=== PATIENT | male | born 1940 | race Caucasian/White ===

== ENCOUNTER 2021-08-25 08:56 | Inpatient (IN) | payer OTHER ==
[2021-08-25] VITALS (49 sets, daily range): BP systolic 75–111; BP diastolic 42–74
[~2021-08-25] VITALS: Ht 167.6 cm; Wt 63.3 kg
--- NOTE | ~2021-08-25 | EMS ---
[address] [address] EMS Patient Care Report Name: NIKOLAS ARANDA Room #: 238-P ADM IN M.R.#: [id number] Admission: 08/25/21 Attend Phys: Monico Jane MD Discharge: Date of : 40 Report #: [id number] THIS REPORT FOR: //name// Report Transmitted: 08/27/2021 07:53 EMS Care Summary [place], [place]/[facility] Incident [id number] @ 08/25/2021 08:18 Incident Location [address] [facility] 102 Patient ROSI CONNOR Male, 81 Years 1940 Patient Address [address] [facility] 102 [place] [phone] Patient History Amputee,Hypotension, Patient Medications Isosorbide, Bacitracin, Chief Complaint dizziness Disposition Transported No Lights/[place] Dispatch Reason Sick Person Transported To [facility] Narrative Upon arrival at [facility], we found the Pt laying supine in bed. Pt complained of dizziness since this morning. Nurse stated that she called because his BP was lower than normal and he complained of dizziness. Pt complained of being cold. Pt felt warm, so I asked the nurse if he had been running a fever. Nurse stated he didn't have fever. Pt had his left, big toe [address] [address] EMS Patient Care Report Name: NIKOLAS ARANDA Room #: 238-P ADM IN [facility]#: [id number] Admission: 08/25/21 Attend Phys: Monico Jane MD Discharge: Date of : 40 Report #: [id number] amputated last month. To his knowledge he wasn't taking any antibiotics for it. Pt was not diabetic. A set of vitals was taken then Pt was lifted from bed to stretcher and taken to the ambulance. Pt didnt have belongings except for the clothes he was wearing. He stated his foot was hurting a lot, so we placed a pillow underneath it during transport. His foot was wrapped in kerlix gauze. Vitals were taken again. Upon arrival at the hospital the Pt was lifted from the stretcher to the hospital bed without incident. Initial Vitals @08:41P: 121,R: 16,BP: 103/69,Pain: 6/10, @08:49P: 123,R: 16,BP: 88/48,Pain: 6/10, @08:33P: 118,R: 16,BP: 99/63,Pain: 6/10,GCS: 15,CO: 0,SpO2: 97,Revised Trauma: 12, Assessments @09:02MENTAL:No Abnormalities,SKIN:Hot,HEENT:Head/Face: No Abnormalities,Eyes: No Abnormalities,Neck/Airway: No Abnormalities,LUNG SOUNDS:General: No Abnormalities,Left Upper: No Abnormalities,Right Upper: No Abnormalities,Left Lower: No Abnormalities,Right Lower: No Abnormalities,ABDOMEN:General: No Abnormalities,Left Upper: No Abnormalities,Right Upper: No Abnormalities,Left Lower: No Abnormalities,Right Lower: No Abnormalities,PELVIS//GI:No Abnormalities,EXTREMITIES:Left Leg: Other,Left Arm: No Abnormalities,Right Arm: No Abnormalities,Right Leg: No Abnormalities,PULSE:Radial: 2+ Normal,NEURO:No Abnormalities,@08:32 Impression Dizziness Procedures @08:35 BLS Assessment Response: Unchanged Timeline 08:17,Call Received 08:17,Dispatch Notified 08:18,Dispatched 08:21,En Route 08:30,On Scene 08:32,At Patient 08:33,BP: 99/63 M,PULSE: 118,RR: 16 R,SPO2: 97 Ox,ETCO2: ,BG: ,PAIN: 6,GCS: 15, 08:35,BLS Assessment,Response: Unchanged 08:41,BP: 103/69 M,PULSE: 121,RR: 16 R,SPO2: Ox,ETCO2: ,BG: ,PAIN: 6,GCS: , 08:45,Depart Scene 08:49,BP: 88/48 M,PULSE: 123,RR: 16 R,SPO2: Ox,ETCO2: ,BG: ,PAIN: 6,GCS: , 08:55,At Destination 09:05,Call Closed [facility] [address] [place] [address] EMS Patient Care Report Name: NIKOLAS ARANDA Room #: 238-P ADM IN M.R.#: [id number] Admission: 08/25/21 Attend Phys: Monico Jane MD Discharge: Date of : 40 Report #: [id number] Disclaimer v1.1 Copyright 2021 [employer] This EMS Care Summary contains data elements from the applicable legal record (which may be displayed differently). It is designed to provide pertinent information for the following purposes: continuity of care, clinical quality, and state data reporting. The complete legal record is available to ED staff and administrators of the receiving hospital in [employer]'s Patient Tracker. All data is provided "as is."
--- NOTE | ~2021-08-25 | EMS ---
[address] [address] EMS Patient Care Report Name: NIKOLAS ARANDA Room #: 238-P ADM IN M.R.#: [id number] Admission: 08/25/21 Attend Phys: Monico Jane MD Discharge: Date of : 40 Report #: [id number] THIS REPORT FOR: //name// Report Transmitted: 08/26/2021 07:54 EMS Care Summary [place], [place]/[facility] Incident [id number] @ 08/25/2021 08:18 Incident Location [address] [facility] 102 Patient ROSI CONNOR Male, 81 Years 1940 Patient Address [address] [facility] 102 [place] [phone] Patient History Amputee,Hypotension, Patient Medications Isosorbide, Bacitracin, Chief Complaint dizziness Disposition Transported No Lights/[place] Dispatch Reason Sick Person Transported To [facility] Narrative Upon arrival at [facility], we found the Pt laying supine in bed. Pt complained of dizziness since this morning. Nurse stated that she called because his BP was lower than normal and he complained of dizziness. Pt complained of being cold. Pt felt warm, so I asked the nurse if he had been running a fever. Nurse stated he didn't have fever. Pt had his left, big toe [address] [address] EMS Patient Care Report Name: NIKOLAS ARANDA Room #: 238-P ADM IN [facility]#: [id number] Admission: 08/25/21 Attend Phys: Monico Jane MD Discharge: Date of : 40 Report #: [id number] amputated last month. To his knowledge he wasn't taking any antibiotics for it. Pt was not diabetic. A set of vitals was taken then Pt was lifted from bed to stretcher and taken to the ambulance. Pt didnt have belongings except for the clothes he was wearing. He stated his foot was hurting a lot, so we placed a pillow underneath it during transport. His foot was wrapped in kerlix gauze. Vitals were taken again. Upon arrival at the hospital the Pt was lifted from the stretcher to the hospital bed without incident. Initial Vitals @08:41P: 121,R: 16,BP: 103/69,Pain: 6/10, @08:49P: 123,R: 16,BP: 88/48,Pain: 6/10, @08:33P: 118,R: 16,BP: 99/63,Pain: 6/10,GCS: 15,CO: 0,SpO2: 97,Revised Trauma: 12, Assessments @09:02MENTAL:No Abnormalities,SKIN:Hot,HEENT:Head/Face: No Abnormalities,Eyes: No Abnormalities,Neck/Airway: No Abnormalities,LUNG SOUNDS:General: No Abnormalities,Left Upper: No Abnormalities,Right Upper: No Abnormalities,Left Lower: No Abnormalities,Right Lower: No Abnormalities,ABDOMEN:General: No Abnormalities,Left Upper: No Abnormalities,Right Upper: No Abnormalities,Left Lower: No Abnormalities,Right Lower: No Abnormalities,PELVIS//GI:No Abnormalities,EXTREMITIES:Left Leg: Other,Left Arm: No Abnormalities,Right Arm: No Abnormalities,Right Leg: No Abnormalities,PULSE:Radial: 2+ Normal,NEURO:No Abnormalities,@08:32 Impression Dizziness Procedures @08:35 BLS Assessment Response: Unchanged Timeline 08:17,Call Received 08:17,Dispatch Notified 08:18,Dispatched 08:21,En Route 08:30,On Scene 08:32,At Patient 08:33,BP: 99/63 M,PULSE: 118,RR: 16 R,SPO2: 97 Ox,ETCO2: ,BG: ,PAIN: 6,GCS: 15, 08:35,BLS Assessment,Response: Unchanged 08:41,BP: 103/69 M,PULSE: 121,RR: 16 R,SPO2: Ox,ETCO2: ,BG: ,PAIN: 6,GCS: , 08:45,Depart Scene 08:49,BP: 88/48 M,PULSE: 123,RR: 16 R,SPO2: Ox,ETCO2: ,BG: ,PAIN: 6,GCS: , 08:55,At Destination 09:05,Call Closed [facility] [address] [place] [address] EMS Patient Care Report Name: NIKOLAS ARANDA Room #: 238-P ADM IN M.R.#: [id number] Admission: 08/25/21 Attend Phys: Monico Jane MD Discharge: Date of : 40 Report #: [id number] Disclaimer v1.1 Copyright 2021 [employer] This EMS Care Summary contains data elements from the applicable legal record (which may be displayed differently). It is designed to provide pertinent information for the following purposes: continuity of care, clinical quality, and state data reporting. The complete legal record is available to ED staff and administrators of the receiving hospital in [employer]'s Patient Tracker. All data is provided "as is."
[2021-08-25] MEDS ORDERED: SUPER THERAVIT1 EACH PO (09:07)
[2021-08-25] MEDS ORDERED: MUCINEX1200 MG PO (09:07)
[2021-08-25] MEDS ORDERED: ELIQUIS2.5 MG PO (09:07)
[2021-08-25] MEDS ORDERED: IPRAT-ALBUT 0.5-3 ML (09:07)
[2021-08-25] MEDS ORDERED: FLONASE 0.05%50 MCG NARES (09:08)
[2021-08-25] MEDS ORDERED: MAGNESIUM250 M1 PO (09:08)
[2021-08-25] MEDS ORDERED: NORCO7.5 PO (09:09)
[2021-08-25] MEDS ORDERED: DULCOLAX STOOL100 M1 PO (09:09)
[2021-08-25 09:22] LABS: HEMATOCRIT 37.2 % (42.0-52.0); HEMOGLOBIN 12.3 gm/dL (14.0-18.0); MCH 30.8 pg (26.0-34.0); MCHC 33.1 g/dL (28.0-37.0); MCV 93.1 fL (80.0-100.0); PLATELET COUNT 352 thou/uL (150-400); RDW 17.9 % (10.5-14.5); WBC 22.4 thou/uL (4.0-11.0)
[2021-08-25 09:26] LABS: CREATININE 1.3 mg/dL (0.7-1.3); POTASSIUM 4.2 mmol/L (3.5-5.1)
[2021-08-25 09:48] LABS: ABSOLUTE NEUTROPHILS 19.9 thou/uL (1.4-8.2)
[2021-08-25 09:49] LABS: ANISOCYTOSIS 1+
[2021-08-25 09:55] LABS: URINE CLARITY CLOUDY; URINE COLOR YELLOW; URINE PROTEIN (DIPSTICK) TRACE (Negative)
[2021-08-25 09:56] LABS: URINE BILIRUBIN NEGATIVE (Negative); URINE BLOOD 3+ (Negative); URINE GLUCOSE-RANDOM* NEGATIVE (Negative); URINE KETONES NEGATIVE (Negative); URINE LEUKOCYTES-REFLEX 3+ (Negative); URINE NITRITE-REFLEX NEGATIVE (Negative); URINE UROBILINOGEN 0.2 E.U./dl (0.2-1.0)
[2021-08-25 10:02] LABS: CASTS None Seen /LPF (None Seen); SQUAMOUS 0-3 Few /LPF (0-3)
[2021-08-25 10:03] LABS: BACTERIA-REFLEX >30 Many /HPF (None Seen); CRYSTALS None Seen /LPF (None Seen); URINE RBC 1-2 Rare /HPF (NONE SEEN); URINE WBC-REFLEX >25 Many /HPF (0-5); YEAST-REFLEX Present (None Seen)
--- NOTE | 2021-08-25 12:29 | NUR ---
PT HAD MAP OF 78 UPON ARRIVAL TO ICU PER PORTABLE MONITORING SYSTEM.
[2021-08-26] VITALS (71 sets, daily range): BP systolic 86–126; BP diastolic 44–74
--- NOTE | 2021-08-26 09:57 | EKG ---
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
[2021-08-27] VITALS (14 sets, daily range): BP systolic 84–128; BP diastolic 47–77
--- NOTE | 2021-08-27 17:10 | NUR ---
Case opened to follow for dc planning. Pt admitted from SNF at [facility]. He indicates he wants to go directly home vs going back to the SNF as they were working on dcing him home with hospice services on Tuesday 08/29. [employer] spoke with Laurie the social services at the facility. She reports the family had chosen [facility] services and were working on getting caregivers and dme in place for dc on 08/29. The pt's is also at [facility] doing a respite stay. The pt's elec w/c is at the facility. He has severe RA and is w/c bound. He was admitted with sepsis/uti and a heel wound. He is on iv atb but is improving and has transfer orders for med/surg bed. [facility] updated and referral faxed and called to [facility]. They will be meeting the pt/son this evening at 5pm to review services and start paperwork. Pt is a DNR. Tree Inspector spoke with the pt's son Abdirizak and he lives next door to the pt. He indicates he has the caregivers setup to start Friday and he will be getting all the dme in place tomorrow. He would prefer dc to home and hospice admission on Friday morning vs late tomorrow due to the caregiver availability. Attempted to update the unit RN x 2. Message left. Will discuss dc timeframe with the attending in the am. Will follow.
== END 2021-08-28 | disposition hospice, home (50) | DRG 872 ==
LOC: ER 08:56 → ICU 10:49 → EROBS 10:49 → ICU 12:17
PROVIDERS: Emergency Medicine; ADMIT Hospitalist; ATTEND Hospitalist
DX: A41.01 Sepsis due to Methicillin susceptible Staphylococcus aureus (principal); N30.01 Acute cystitis with hematuria; Z66 Do not resuscitate; Z79.899 Other long term (current) drug therapy; Z20.822 Contact with and (suspected) exposure to COVID-19; I73.9 Peripheral vascular disease, unspecified; Z88.8 Allergy status to other drugs, medicaments and biological substances; R65.20 Severe sepsis without septic shock
CPT/HCPCS: 10078; 10196